=== PATIENT | female | born 1995 | race Caucasian/White ===

== ENCOUNTER 2021-04-08 14:15 | Emergency (ER) | payer OTHER ==
[2021-04-08] MEDS ORDERED: ZOFRAN4 MG PO (17:04)
[2021-04-08] MEDS ORDERED: DELSYM30 MG/5 ML PO (17:04)
== END 2021-04-08 17:35 | disposition home or self-care (01) ==
LOC: ER1 14:15
DX: U07.1 COVID-19 (principal); Z23 Encounter for immunization
CPT/HCPCS: 99283; J2405; M0245

== ENCOUNTER 2021-04-11 17:19 | Emergency (ER) | payer OTHER ==
[~2021-04-11 17:19] MED LIST: DELSYM30 MG/5 ML PO; ZOFRAN4 MG PO
[2021-04-11 18:40] LABS: HEMOGLOBIN 14.7 gm/dl (12.3-15.3); RED BLOOD COUNT 4.91 M/UL (4.00-5.10); WHITE BLOOD COUNT 3.3 K/UL (4.5-11.0)
[2021-04-11 18:59] LABS: BUN/CREATININE RATIO 15 (0-10)
[2021-04-11] MEDS ORDERED: PHENERGAN 25 MG25 M1 PO (19:18)
== END 2021-04-11 19:40 | disposition home or self-care (01) ==
LOC: ER1 17:19
PROVIDERS: Physician Assistant
DX: U07.1 COVID-19 (principal); I10 Essential (primary) hypertension; J45.909 Unspecified asthma, uncomplicated
CPT/HCPCS: 80053; 85025; 99284